=== PATIENT | male | born 2000 | race Two or more races ===

== ENCOUNTER 2021-03-18 11:22 | Emergency (ER) | payer OTHER ==
[~2021-03-18] VITALS: Ht 175.3 cm; Wt 116.6 kg
[2021-03-18 11:49] VITALS: BP 152/91
[2021-03-18] MEDS ORDERED: ACETAMINOPHEN 500 MG TAB PO ONE (13:15)
== END 2021-03-18 13:56 | disposition home or self-care (01) ==
LOC: ER 11:22
DX: S01.01XA Laceration without foreign body of scalp, initial encounter (principal); W22.8XXA Striking against or struck by other objects, initial encounter; Y93.89 Activity, other specified; Y92.89 Other specified places as the place of occurrence of the external cause; Y99.0 Civilian activity done for income or pay
CPT/HCPCS: 12001

== ENCOUNTER 2021-03-20 16:48 | Emergency (ER) | payer OTHER ==
[~2021-03-20] VITALS: Ht 175.3 cm; Wt 115.7 kg
[2021-03-20 17:00] VITALS: BP 167/97
== END 2021-03-20 17:52 | disposition home or self-care (01) ==
LOC: ER 16:48
DX: S09.8XXD Other specified injuries of head, subsequent encounter (principal); F07.81 Postconcussional syndrome; F17.210 Nicotine dependence, cigarettes, uncomplicated; X58.XXXD Exposure to other specified factors, subsequent encounter
CPT/HCPCS: 70450; 93005